=== PATIENT | male | born 1995 | race Caucasian/White ===

== ENCOUNTER 2018-05-10 20:38 | Emergency (ER) | END 2018-05-10 21:55 | disposition home or self-care (01) ==

== ENCOUNTER 2019-03-24 21:07 | Emergency (ER) | payer MEDICAID, OTHER ==
[~2019-03-24] VITALS: Ht 170.2 cm; Wt 67.3 kg
[~2019-03-24 21:07] MED LIST: ACYC400T2 PO; HYDR-3980 PO; PRED20TA PO; VALA10004 PO
[2019-03-24 21:12] VITALS: BP 127/68; PULSE 96; RESP 20; Ht 170.2 cm; Wt 67.3 kg
[2019-03-24] MEDS ORDERED: IBUP800T48 PO (21:48)
[2019-03-24] MEDS ORDERED: HYDR-4011 PO (21:48)
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
== END 2019-03-24 21:58 | disposition home or self-care (01) ==
LOC: FTE 21:07
DX: Z48.01 Encounter for change or removal of surgical wound dressing (principal)
CPT/HCPCS: 99283

== ENCOUNTER → 2019-03-31 | Emergency (ER) | payer MEDICAID ==
[~2019-03-31] VITALS: Ht 172.7 cm; Wt 67.5 kg
[~2019-03-31] MED LIST changes: +HYDR-4011 PO; +IBUP800T48 PO
[2019-03-31 19:56] VITALS: BP 122/71; PULSE 87; RESP 18; Ht 172.7 cm; Wt 67.5 kg
--- NOTE | 2019-03-31 20:17 | ERD ---
ER Documentation Chief Complaint Chief Complaint WOUND CHECK; LAC TO LEFT ARM HPI Patient is a 24-year-old male with no medical problems who presents for wound check and possible staple removal. The patient had addie placed the left arm on March 21. He has had no fevers or pus from the wound since. He came for wound check and possible removal. He has no complaints. ROS All systems reviewed and are negative except as per history of present illness. Medications Home Meds Active Scripts Hydrocodone/Acetaminophen ([place] 5-325 Tablet) 1 Each Tablet, 1 TAB PO Q6H PRN for PAIN, #20 TAB Prov:LUIS PATIÑO PA-C 03/24/19 Ibuprofen* (Motrin*) 800 Mg Tab, 800 MG PO Q6H PRN for PAIN AND OR ELEVATED TEMP, #30 TAB Prov:LUIS PATIÑO PA-C 03/24/19 valACYclovir HCl (Valtrex) 1,000 Mg Tablet, 1000 MG PO BID for 10 Days, TAB Prov:ZACHARY MEJÍA PA-C 05/10/18 Acyclovir* (Acyclovir*) 400 Mg Tablet, 400 MG PO 5 TIMES DAILY for 10 Days, TAB Prov:ZACHARY MEJÍA PA-C 05/10/18 Prednisone* (Prednisone*) 20 Mg Tab, 60 MG PO DAILY for 5 Days, TAB Prov:ZACHARY MEJÍA PA-C 05/10/18 Hydrocodone/Acetaminophen ([place] 10-325 Tablet) 1 Each Tablet, 1 TAB PO Q6H PRN for PAIN, #20 TAB Prov:ZACHARY MEJÍA PA-C 05/10/18 Allergies Allergies: Coded Allergies: No Known Allergy (Unverified , 03/24/19) PMhx/Soc History of Surgery: Yes (R Eye Surgery,L Arm Surgery) Anesthesia Reaction: No Hx Neurological Disorder: No Hx Respiratory Disorders: No Hx Cardiac Disorders: No Hx Psychiatric Problems: No Hx Miscellaneous Medical Probl: Yes (Shingles) Hx Alcohol Use: Yes Hx Substance Use: Yes (Meth) Hx Tobacco Use: No Smoking Status: Never smoker FmHx Family History: No diabetes Physical Exam Vitals Vital Signs Date Temp Pulse Resp B/P (MAP) Pulse Ox O2 O2 Flow FiO2 Time Delivery Rate 03/31/19 97.9 87 18 122/71 100 19:56 (88) Physical Exam Const: No acute distress Head: Atraumatic Eyes: Normal Conjunctiva ENT: Normal External Ears, Nose and Mouth. Neck: Full range of motion. No meningismus. Resp: Clear to auscultation bilaterally Cardio: Regular rate and rhythm, no murmurs Abd: Soft, non tender, non distended. Normal bowel sounds Skin: Incision to the left forearm is clean, dry, and intact with addie Back: No midline or flank tenderness Ext: No cyanosis, or edema Neur: Awake and alert Psych: Normal Mood and Affect Procedures/MDM I removed 2 addie at the bedside and there did appear to be wound edges pulling apart and therefore I stopped any more removal at that time. I do believe that he would benefit from 4 more days of wound healing prior to staple removal. He can return for any worsening symptoms. There is no sign of infection. Departure Diagnosis: Primary Impression: Encounter for wound re-check Condition: Fair Patient Instructions: Wound Check, Lac F/U (No Infection) [facility] Usted se alford hecho un examen mdico de control que le indica que no est en yaakov condicin que requiera tratamiento urgente en el Departamento de Emergencia. Un estudio ms profundo y el tratamiento de moran condicin pueden esperar sin ningn riesgo hasta que usted sea atendida/o en el consultorio de moran mdico o yaakov clnica. Es responsabilidad suya arreglar yaakov albino para el seguimiento del orion. MANEJO DE CONDICIONES NO URGENTES EN EL FUTURO 1) Si usted tiene un mdico de atencin primaria: Usted debera llamar a moran mdico de atencin primaria antes de venir al departamento de emergencia. Despus de las horas de consultorio, moran doctor o moran asociado/a est disponible por telfono. El mdico o enfermero de yehuda en el servicio telefnico puede asesorarle por michael medio para atender el problema, o orion contrario se puede programar yaakov albino. 2) Si usted no tiene un mdico de atencin primaria: Llame al mdico o clnica de referencia que aparece abajo jay las horas de consultorio para hacer yaakov albino para que le vean. CLINICAS: [place] [address] [phone] [facility] [phone] [place] [address] [phone] [place] [address] [phone] [place] [address] [phone] [facility] [phone] [address] Additional Instructions: Llame al doctor MAANA y lakshmi yaakov ALBINO PARA DENTRO DE 4 GAY.Dgale a la secretaria que nosotros le instruimos hacer esta albino.Avise o llame si moran condicin se empeora antes de la albino. Regresa aqui si peor o no mejor. MINOR BEASLEY MD Mar 31, 2019 20:17
== END | disposition home or self-care (01) ==
LOC: FTE 19:54
DX: Z48.01 Encounter for change or removal of surgical wound dressing (principal)
CPT/HCPCS: 99281

== ENCOUNTER 2019-04-05 13:01 | Emergency (ER) | payer MEDICAID ==
[~2019-04-05] VITALS: Wt 68.0 kg
[2019-04-05 13:06] VITALS: BP 136/62; PULSE 78; RESP 18
--- NOTE | 2019-04-05 13:30 | ERD ---
ER Documentation Chief Complaint Chief Complaint WOUND CHECK TO RIGHT FOREARM HPI 24-year-old male, status post laceration repaired on the left forearm on 03/21/19 at a [facility], presents to the emergency department for addie removal, otherwise, the patient denies fever, no chills, no distal weakness, numbness or tingling. ROS All systems reviewed and are negative except as per history of present illness. Medications Home Meds Active Scripts Ibuprofen* (Motrin*) 600 Mg Tab, 600 MG PO Q8 PRN for PAIN AND OR ELEVATED TEMP, #15 TAB Prov:JASPAL ECHEVERRIA MD 04/05/19 Hydrocodone/Acetaminophen ([place] 5-325 Tablet) 1 Each Tablet, 1 TAB PO Q6H PRN for PAIN, #20 TAB Prov:LUIS PATIÑO PA-C 03/24/19 Ibuprofen* (Motrin*) 800 Mg Tab, 800 MG PO Q6H PRN for PAIN AND OR ELEVATED TEMP, #30 TAB Prov:LUIS PATIÑO PA-C 03/24/19 valACYclovir HCl (Valtrex) 1,000 Mg Tablet, 1000 MG PO BID for 10 Days, TAB Prov:ZACHARY MEJÍA PA-C 05/10/18 Acyclovir* (Acyclovir*) 400 Mg Tablet, 400 MG PO 5 TIMES DAILY for 10 Days, TAB Prov:ZACHARY MEJÍA PA-C 05/10/18 Prednisone* (Prednisone*) 20 Mg Tab, 60 MG PO DAILY for 5 Days, TAB Prov:ZACHARY MEJÍA PA-C 05/10/18 Hydrocodone/Acetaminophen ([place] 10-325 Tablet) 1 Each Tablet, 1 TAB PO Q6H PRN for PAIN, #20 TAB Prov:ZACHARY MEJÍA PA-C 05/10/18 Allergies Allergies: Coded Allergies: No Known Allergy (Unverified , 03/24/19) PMhx/Soc History of Surgery: Yes (R Eye Surgery,L Arm Surgery) Anesthesia Reaction: No Hx Neurological Disorder: No Hx Respiratory Disorders: No Hx Cardiac Disorders: No Hx Psychiatric Problems: No Hx Miscellaneous Medical Probl: Yes (Shingles) Hx Alcohol Use: Yes Hx Substance Use: Yes (Meth) Hx Tobacco Use: No FmHx Family History: No diabetes, No coronary disease Physical Exam Vitals Vital Signs Date Temp Pulse Resp B/P (MAP) Pulse Ox O2 O2 Flow FiO2 Time Delivery Rate 04/05/19 98.1 78 18 136/62 99 13:06 (86) Physical Exam Const: No acute distress Head: Atraumatic Eyes: Normal Conjunctiva ENT: Normal External Ears, Nose and Mouth. Neck: Full range of motion. No meningismus. Resp: Clear to auscultation bilaterally Cardio: Regular rate and rhythm, no murmurs Abd: Soft, non tender, non distended. Normal bowel sounds Skin: Left forearm: V-shaped laceration with addie and placed, no evidence of infection. No petechiae or rashes Back: No midline or flank tenderness Ext: No cyanosis, or edema Neur: Awake and alert Psych: Normal Mood and Affect Procedures/MDM Adequate pain control, no fever, no chills, good compliance with medications no side effects. The patient was evaluated for infection and neurovascular compromise. 7 addie were removed and [address] to improve cosmesis of the scar. Patient is stable, with adequate healing process, okay to discharge home. The patient was instructed to follow up with the primary care provider in the next 48h. If symptoms persist, worsen or new symptoms develop, then patient should return to the ED immediately. Instructions explained and given directly by me to the patient with ackn owledgment and demonstrated understanding. Disclaimer: Inadvertent spelling and grammatical errors are likely due to EHR/dictation software use and do not reflect on the overall quality of patient care. Also, please note that the electronic time recorded on this note does not necessarily reflect the actual time of the patient encounter. Departure Diagnosis: Primary Impression: Encounter for removal of addie Condition: Stable Additional Instructions: Muchas jo ann por [facility] para moran servicio. Esperamos que en moran visita a la brian de emergencia moran problema medico haya sido solucionado y que se sienta mucho mejor. Para estar seguros que moran mejoria sigue en proceso, le pedimos el favor de hacer yaakov he de seguimiento medico con moran doctor primario en los proximos 2-4 pedroza. Lleve con usted estos documentos y las medicinas recetadas. Si jay sintomas empeoran, NO SE ESPERE, por favor regrese a brian de emergencia INMEDIATAMENTE. En orion que usted no tenga un mdico de atencin primaria: Llame al mdico o clnica comunitaria de referencia que aparece abajo jay las horas de consultorio para hacer yaakov he para que le vean. CLINICAS: [facility] [phone] [address] [facility] [phone] [address] [facility] [[email or web address]] [phone] [address] [facility] [phone] [address] [facility] [phone] [address] [facility]. [phone] JASPAL HOWELL MD Apr 05, 2019 13:30
[2019-04-05] MEDS ORDERED: IBUP-1542 PO (13:31)
== END 2019-04-05 13:32 | disposition home or self-care (01) ==
LOC: E/R 13:01
DX: Z48.02 Encounter for removal of sutures (principal)
CPT/HCPCS: 99281

== ENCOUNTER 2019-04-11 16:40 | Emergency (ER) | payer MEDICAID ==
[~2019-04-11] VITALS: Ht 172.7 cm; Wt 65.7 kg
[~2019-04-11 16:40] MED LIST changes: +IBUP-1542 PO
[2019-04-11 16:59] VITALS: BP 113/71; PULSE 77; RESP 17; Ht 172.7 cm; Wt 65.7 kg
--- NOTE | 2019-04-11 22:20 | ERD ---
ER Documentation Chief Complaint Chief Complaint ADDIE REMOVAL ON LEFT WRIST HPI 24-year-old male with history of left wrist skin laceration to the ED for staple removal. Has addie placed in a different hospital for a laceration of the left wrist. He was in the ED here about a week ago, due to the prolonged he aling process only some of the addie were removed and the rest of the addie were left in. Patient presents today to remove the rest of his addie. He states that the wound appears to be healing well. Denies any fevers or chills. Denies any new symptoms. He still having difficulty with his fingers over the left hand. No other modifying factors noted, no other treatments tried at home. ROS All systems reviewed and are negative except as per history of present illness. Medications Home Meds Active Scripts Ibuprofen* (Motrin*) 600 Mg Tab, 600 MG PO Q8 PRN for PAIN AND OR ELEVATED TEMP, #15 TAB Prov:JASPAL ECHEVERRIA MD 04/05/19 Hydrocodone/Acetaminophen ([place] 5-325 Tablet) 1 Each Tablet, 1 TAB PO Q6H PRN for PAIN, #20 TAB Prov:LUIS PATIÑO PA-C 03/24/19 Ibuprofen* (Motrin*) 800 Mg Tab, 800 MG PO Q6H PRN for PAIN AND OR ELEVATED TEMP, #30 TAB Prov:LUIS PATIÑO PA-C 03/24/19 valACYclovir HCl (Valtrex) 1,000 Mg Tablet, 1000 MG PO BID for 10 Days, TAB Prov:ZACHARY MEJÍA PA-C 05/10/18 Acyclovir* (Acyclovir*) 400 Mg Tablet, 400 MG PO 5 TIMES DAILY for 10 Days, TAB Prov:ZACHARY MEJÍA PA-C 05/10/18 Prednisone* (Prednisone*) 20 Mg Tab, 60 MG PO DAILY for 5 Days, TAB Prov:ZACHARY MEJÍA PA-C 05/10/18 Hydrocodone/Acetaminophen ([place] 10-325 Tablet) 1 Each Tablet, 1 TAB PO Q6H PRN for PAIN, #20 TAB Prov:ZACHARY MEJÍA PA-C 05/10/18 Allergies Allergies: Coded Allergies: No Known Allergy (Unverified , 03/24/19) PMhx/Soc History of Surgery: Yes (R Eye Surgery,L Arm Surgery) Anesthesia Reaction: No Hx Neurological Disorder: No Hx Respiratory Disorders: No Hx Cardiac Disorders: No Hx Psychiatric Problems: No Hx Miscellaneous Medical Probl: Yes (Shingles) Hx Alcohol Use: Yes Hx Substance Use: Yes (Meth) Hx Tobacco Use: No FmHx Family History: No coronary disease Physical Exam Vitals Vital Signs Date Temp Pulse Resp B/P (MAP) Pulse Ox O2 O2 Flow FiO2 Time Delivery Rate 04/11/19 98.3 77 17 113/71 99 16:59 (85) Physical Exam Const: No acute distress Neck: Full range of motion. No meningismus. Resp: Clear to auscultation bilaterally Cardio: Regular rate and rhythm, no murmurs bilateral radial pulses intact Skin: Left wrist laceration site healing well, some addie left intact, clean dry Ext: No cyanosis, or edema, he has some difficulty moving the fourth and fifth digit Neur: Awake and alert, bilateral upper extremity sensation intact Psych: Normal Mood and Affect Procedures/MDM Medical Decision Making: Patient presents for staple removal of a laceration over the left wrist was repaired about 3 weeks ago. Patient appeared well on physical exam. No signs of infection. Patient neurovascular intact. Staple Removal by me: 5 addie removed with staple remover without incident. Wound shows no evidence of infection, foreign body, neurologic injury, vascular injury, open joint or tendon laceration. Patient to follow up PRN. Patient referred to the [facility] clinic due to intrinsic hand muscle weakness after the laceration. Patient advised to follow up with PCP in 1-2 days. Patient advised to return to ED for new or worsening symptoms. Patient stable on discharge from the ED. Disclaimer: Inadvertent spelling and grammatical errors are likely due to EHR/dictation software use and do not reflect on the overall quality of patient care. Also, please note that the electronic time recorded on this note does not necessarily reflect the actual time of the patient encounter. Departure Diagnosis: Primary Impression: Encounter for removal of addie Condition: Fair Patient Instructions: Staple Removal, No Complication Referrals: [facility] Additional Instructions: Llame al doctor MAANA y lakshmi yaakov ALBINO PARA DENTRO DE 1-2 GAY.Dgale a la secretaria que nosotros le instruimos hacer esta albino.Avise o llame si moran condicin se empeora antes de la albino. Regresa aqui si peor o no mejor. LONA LEVINE DO Apr 11, 2019 22:20
== END 2019-04-11 17:41 | disposition home or self-care (01) ==
LOC: E/R 16:40
DX: Z48.02 Encounter for removal of sutures (principal)
CPT/HCPCS: 99281